=== PATIENT | male | born 1970 | race Caucasian/White ===

== ENCOUNTER 2020-06-16 22:43 | Inpatient (IN) ==
[2020-06-16] MEDS ORDERED: 0.9 % Sodium Chloride 1,000 ML IVC ONE (23:04)
[2020-06-16] MEDS ORDERED: Isovue-370 500 ML BOTTLE IVP ONE (23:25)
[2020-06-16] MEDS ORDERED: Ondansetron 4 MG/2 ML VIAL IVP ONE (23:25)
[2020-06-16] MEDS ORDERED: Ketorolac 30 MG/ML VIAL IVP ONE (23:25)
[2020-06-16 23:34] LABS: Basophils % 0.3 %; Eosinophils # 0.1 K/mcL (0.0-0.6); Eosinophils % 0.7 %; Hemoglobin 18.7 g/dL (12.9-16.9); Immature Granulocytes % 0.2 % (0-4); Lymphocytes # 2.5 K/mcL (0.6-4.6); Lymphocytes % 23.5 %; Mean Corpuscular Hemoglobin 33.8 pg (28.0-33.3); Mean Corpuscular Volume 99.3 fL (83.0-100.0); Mean Platelet Volume 11.3 fL (9.4-12.4); Monocytes # 0.8 K/mcL (0.0-1.3); Monocytes % 7.5 %; Neutrophils # 7.3 K/mcL (1.6-8.9); Platelet Count 225 K/mcL (140-400); Red Blood Count 5.54 M/mcL (4.19-5.50); Red Cell Distribution Width 13.1 % (11.5-14.5); Segmented Neutrophils % 67.8 %; White Blood Count 10.8 K/mcL (4.3-11.1)
[2020-06-16 23:51] LABS: Alanine Aminotransferase 20 Units/L (7-52); Albumin 4.2 g/dL (3.5-5.7); Albumin/Globulin Ratio 1.4 (1.1-2.2); Alkaline Phosphatase 59 Units/L (34-104); BUN/Creatinine Ratio 19 (6-26); Bilirubin,Direct 0.1 mg/dL (0.0-0.2); Bilirubin,Indirect 0.5 mg/dL (0.0-1.0); Bilirubin,Total 0.6 mg/dL (0.3-1.0); Blood Urea Nitrogen 21 mg/dL (6-20); Calcium 9.1 mg/dL (8.6-10.3); Carbon Dioxide 23 mEq/L (23-29); Chloride 102 mEq/L (98-107); Globulin 2.9 g/dL (2.4-3.5); Glucose 182 mg/dL (70-105); Lipase 95 Units/L (11-82); Osmolality,Calculated 290 (280-300); Potassium 3.8 mEq/L (3.5-5.1); Sodium 136 mEq/L (136-145); Total Protein 7.1 g/dL (6.4-8.9); Troponin I 0.04 ng/mL (< 0.04); eGFR For African Americans > 60 (> 60); eGFR For Non-African Americans > 60 (> 60)
[2020-06-17] MEDS ORDERED: cefTRIAXone 1,000 MG in 0.9 % Sodium Chloride Mini Bag 100 ML IVPB ONE (01:11)
[2020-06-17] MEDS ORDERED: Azithromycin 500 MG in 0.9 % Sodium Chloride 250 ML IVPB ONE (01:11)
[2020-06-17 01:25] LABS: Bilirubin,Urine Negative (Negative); Blood,Urine Small (Negative); Clarity,Urine Clear (Clear); Color,Urine Yellow (Yellow); Glucose,Urine (UA) Normal (Normal); Ketones,Urine Trace mg/dL (Negative); Leukocyte Esterase,Urine Negative (Negative); Mucus,Urine Many per lpf (None-Few); Nitrite,Urine Negative (Negative); Protein,Urine 30 mg/dL (Neg-Trace); RBC,Urine 15-30 per hpf (0-3); Specific Gravity,Urine > 1.030 (1.010-1.025); Urobilinogen,Urine Normal (Normal); WBC,Urine 0-3 per hpf (0-3)
[2020-06-17 01:27] LABS: Aspartate Amino Transferase 15 Units/L (13-39)
[2020-06-17] MEDS ORDERED: *HR* HYDROmorphone (PF) 1 MG/ML SYRINGE IVP ONE (01:42)
[2020-06-17] MEDS ORDERED: Metoclopramide 10 MG/2 ML VIAL IVP ONE (01:42)
[2020-06-17] MEDS ORDERED: *HR* HYDROcodone/Acet 5/325 mg TABLET PO PRN (01:56)
[2020-06-17] MEDS ORDERED: Melatonin 3 MG TABLET PO PRN (01:56)
[2020-06-17] MEDS ORDERED: Ondansetron 4 MG/2 ML VIAL IVP PRN (01:56)
[2020-06-17] MEDS ORDERED: Naloxone 0.4 MG/ML INJ IVP PRN (01:56)
[2020-06-17] MEDS ORDERED: Acetaminophen 325 MG TABLET PO PRN (01:56)
[2020-06-17] MEDS ORDERED: *HR* Promethazine 25 MG/ML VIAL IM PRN (01:56)
[2020-06-17] MEDS ORDERED: Aspirin 81 MG TAB.CHEW PO ONE (02:00)
[2020-06-17] MEDS ORDERED: cefTRIAXone 1,000 MG in Water for inj. (sterile) 10 ML IVP ONE (02:00)
[2020-06-17] MEDS ORDERED: *HR* Dextrose 50 % in Water (Vial) 50 ML VIAL IVP PRN (02:41)
[2020-06-17] MEDS ORDERED: Dextrose Gel 15 GM/37.5 ML TUBE PO PRN ×2 (02:41)
[2020-06-17] MEDS ORDERED: D5% in Water 1,000 ML IVC PRN (02:41)
[2020-06-17] MEDS: 0.9 % Sodium Chloride 1,000 ML IVC SCH ×3 (04:39→21:27)
[2020-06-17] MEDS: Insulin LISPRO 300 UNITS/3 ML VIAL SUBQ SCH ×4 (07:56→21:27)
[2020-06-17] MEDS: Piperacillin/Tazobactam 3.375 GM in 0.9 % Sodium Chloride Mini Bag 100 ML IVPB SCH ×2 (09:14→16:51)
[2020-06-17] MEDS: Nicotine 21 MG PATCH.TD24 TD SCH (09:14)
[2020-06-18] MEDS: Piperacillin/Tazobactam 3.375 GM in 0.9 % Sodium Chloride Mini Bag 100 ML IVPB SCH ×4 (05:12→22:08)
[2020-06-18] MEDS: Insulin LISPRO 300 UNITS/3 ML VIAL SUBQ SCH ×4 (08:35→22:09)
[2020-06-18] MEDS ORDERED: Azithromycin 250 MG TABLET PO SCH (09:00)
[2020-06-18] MEDS ORDERED: cefTRIAXone 1,000 MG in Water for inj. (sterile) 10 ML IVP SCH (09:00)
[2020-06-18] MEDS: Nicotine 21 MG PATCH.TD24 TD SCH (11:43)
[2020-06-18] MEDS: 0.9 % Sodium Chloride 1,000 ML IVC SCH ×3 (11:46→20:05)
[2020-06-18] MEDS ORDERED: Ondansetron 4 MG/2 ML VIAL IVP PRN (12:40)
[2020-06-18] MEDS ORDERED: Ondansetron 4 MG/2 ML VIAL IVP ONE (12:40)
[2020-06-18] MEDS ORDERED: Prochlorperazine 10 MG/2 ML VIAL IVP STA (12:41)
[2020-06-18] MEDS: *HR* Heparin 5,000 UNIT/ML VIAL SQ SCH (16:36)
[2020-06-18] MEDS ORDERED: 0.9 % Sodium Chloride Mini Bag 100 ML ONE (21:56)
[2020-06-19] MEDS: Piperacillin/Tazobactam 3.375 GM in 0.9 % Sodium Chloride Mini Bag 100 ML IVPB SCH ×3 (05:05→21:22)
[2020-06-19] MEDS: *HR* Heparin 5,000 UNIT/ML VIAL SQ SCH ×2 (05:07→17:14)
[2020-06-19 06:21] LABS: Basophils # 0.1 K/mcL (0.0-0.2); Basophils % 0.6 %; Eosinophils # 0.2 K/mcL (0.0-0.6); Eosinophils % 1.4 %; Immature Granulocytes % 0.3 % (0-4); Lymphocytes # 3.2 K/mcL (0.6-4.6); Mean Corpuscular HGB Conc 33.1 g/dL (31.6-35.5); Mean Corpuscular Hemoglobin 32.7 pg (28.0-33.3); Mean Corpuscular Volume 98.8 fL (83.0-100.0); Mean Platelet Volume 11.2 fL (9.4-12.4); Monocytes # 0.8 K/mcL (0.0-1.3); Monocytes % 7.5 %; Neutrophils # 6.1 K/mcL (1.6-8.9); Platelet Count 206 K/mcL (140-400); Red Blood Count 4.25 M/mcL (4.19-5.50); Red Cell Distribution Width 12.8 % (11.5-14.5); Segmented Neutrophils % 59.2 %; White Blood Count 10.4 K/mcL (4.3-11.1)
[2020-06-19 06:22] LABS: Hemoglobin 13.9 g/dL (12.9-16.9)
[2020-06-19 06:44] LABS: BUN/Creatinine Ratio 15 (6-26); Blood Urea Nitrogen 13 mg/dL (6-20); Calcium 8.1 mg/dL (8.6-10.3); Carbon Dioxide 20 mEq/L (23-29); Chloride 109 mEq/L (98-107); Glucose 103 mg/dL (70-105); Magnesium 1.9 mg/dL (1.6-2.6); Osmolality,Calculated 286 (280-300); Phosphorous 2.2 mg/dL (2.7-4.5); Potassium 3.7 mEq/L (3.5-5.1); Sodium 138 mEq/L (136-145); eGFR For African Americans > 60 (> 60); eGFR For Non-African Americans > 60 (> 60)
[2020-06-19 07:05] LABS: Adenovirus F 40/41 PCR Not detected (Not detect); Astrovirus PCR Not detected (Not detect); C.difficile Toxin A/B Gene PCR Not detected (Not detect); Campylobacter by PCR Not detected (Not detect); Cryptosporidium by PCR Not detected (Not detect); Cyclospora cayetanensis PCR Not detected (Not detect); E. coli O157 by PCR Not detected (Not detect); Entamoeba histolytica PCR Not detected (Not detect); Enteroaggregative E.coli(EAEC) Not detected (Not detect); Enteropathogenic E.coli(EPEC) Not detected (Not detect); Enterotoxigenic E.coli (ETEC) Not detected (Not detect); Giardia lamblia PCR Not detected (Not detect); Norovirus GI/GII PCR DETECTED (Not detect); Plesiomonas shigelloides PCR Not detected (Not detect); Rotavirus A PCR Not detected (Not detect); Salmonella PCR Not detected (Not detect); Sapovirus PCR Not detected (Not detect); Shig/EnteroinvasiveE coli EIEC Not detected (Not detect); Shigalike tox-prod E coli STEC Not detected (Not detect); Vibrio PCR Not detected (Not detect); Vibrio cholerae PCR Not detected (Not detect); Yersinia enterocolitica PCR Not detected (Not detect)
[2020-06-19] MEDS: Insulin LISPRO 300 UNITS/3 ML VIAL SUBQ SCH ×4 (09:15→21:22)
[2020-06-19] MEDS: Nicotine 21 MG PATCH.TD24 TD SCH (09:19)
[2020-06-19] MEDS: 0.9 % Sodium Chloride 1,000 ML IVC SCH (09:20)
[2020-06-20] MEDS: Piperacillin/Tazobactam 3.375 GM in 0.9 % Sodium Chloride Mini Bag 100 ML IVPB SCH (05:38)
[2020-06-20] MEDS: *HR* Heparin 5,000 UNIT/ML VIAL SQ SCH (05:38)
[2020-06-20 06:55] VITALS: BP 132/82
[2020-06-20] MEDS: Insulin LISPRO 300 UNITS/3 ML VIAL SUBQ SCH (08:10)
[2020-06-20 09:52] LABS: Estimated Average Glucose 157 mg/dl; Hemoglobin A1C 7.1 %
[2020-06-20] MEDS: Nicotine 21 MG PATCH.TD24 TD SCH (11:16)
== END 2020-06-20 13:07 | disposition home or self-care (01) | DRG 388 ==
LOC: 3BNU 22:43 → EMEROOARM 22:43 → SUATTDRO 06-17 02:30 → 3BNU 06-17 03:40
PROVIDERS: ADMIT Family Medicine; ATTEND Internal Medicine